=== PATIENT | female | born 1990 | race Two or more races ===

== ENCOUNTER 2024-05-13 18:03 | Inpatient (IN) | payer OTHER ==
[~2024-05-13] VITALS: Ht 175.3 cm; Wt 72.6 kg
[2024-05-13] MEDS ORDERED: CONCERTA18 MG PO (18:06)
[2024-05-13] MEDS ORDERED: CITALOPRAM HBR10 MG PO (18:06)
[2024-05-13] MEDS ORDERED: MORPHINE SULFATE 2 MG/ML SYRINGE IV ONE (18:15)
[2024-05-13] MEDS ORDERED: ADENOSINE 3 MG/ML VIAL IV ONE (18:15)
[2024-05-13] MEDS ORDERED: METOPROLOL TARTRATE 25 MG TABLET PO ONE (18:15)
[2024-05-13] MEDS ORDERED: FAMOtidine 10 MG/ML (4ML VIAL) IV ONE (18:15)
[2024-05-13] MEDS ORDERED: 0.9 % SODIUM CHLORIDE 1,000 ML IV ONE (18:15)
[2024-05-13 18:24] LABS: HEMATOCRIT 39.4 % (36.0-45.00); HEMOGLOBIN 13.5 g/dL (12.0-15.00); MEAN CELL VOLUME 89.2 fL (80.00-100.00); MEAN CORPUSCULAR HEMOGLOBIN 30.5 pg (27.00-32.0); MEAN CORPUSCULAR HGB CONC 34.2 g/dl (32.0-36.0); PLATELET COUNT 287 K/uL (150-450); RED BLOOD COUNT 4.42 M/uL (4.00-6.00)
[2024-05-13 18:39] LABS: INR 0.99; PARTIAL THROMBOPLASTIN TIME 28.2 SECONDS (22.0-34.0); PROTHROMBIN TIME 10.8 SECONDS (9.0-11.5)
[2024-05-13 18:47] LABS: ALBUMIN 3.5 gm/dL (3.4-5.0); ALKALINE PHOSPHATASE 51 U/L (50-136); ALT/SGPT 14 U/L (12-78); ANION GAP 12 (10.0-20.0); AST/SGOT 16 U/L (15-37); BILIRUBIN TOTAL 0.63 mg/dL (0.3-1.2); BLOOD UREA NITROGEN 13 mg/dL (7-18); BUN CREA RATIO 15 (7.0-25.0); CALCIUM 9.2 mg/dL (8.5-10.1); CARBON DIOXIDE 23 mEq/L (21-32); CHLORIDE 110 mmol/L (98-107); CREATININE SERUM 0.88 mg/dL (0.55-1.02); GFR 73.55; GLOBULINA 3.6 G/DL (2.4-3.5); GLUCOSE FASTING 123 mg/dL (65-100); OSMOLALITY SERUM 283 MOSM/KG (275-295); POTASSIUM 3.63 mEq/L (3.5-5.1); SODIUM 141 mmol/L (136-145); TOTAL PROTEIN 7.1 gm/dL (6.4-8.2)
[2024-05-13 18:54] LABS: HCG QUANTITATIVE < 1 mUI/mL (1-3)
[2024-05-13] MEDS ORDERED: ASPIRIN 325 MG TABLET PO ONE (19:15)
[2024-05-13] MEDS ORDERED: NITROGLYCERIN IN 5 % DEXTROSE 250 ML IV SCH (19:19)
[2024-05-13 19:42] LABS: URINE APPEARANCE Clear; URINE BILIRRUBIN Negative (NEGATIVE); URINE BLOOD Small; URINE COLOR Yellow; URINE GLUCOSE Negative (NEGATIVE); URINE KETONE 15 (NEGATIVE); URINE LEUKOCYTE Negative; URINE NITRATE Negative; URINE PROTEIN Negative (NEGATIVE); URINE UROBILINOGEN 0.2 E.U./dl
[2024-05-13 19:46] LABS: URINE BACTERIA 1286.2 uL (0.0-1933); URINE EPITHELIAL CELLS 46.3 uL (0.0-38.8); URINE WBC 9.3 uL (0.0-23.2)
[2024-05-13 19:49] LABS: URINE CAST 0.44 uL (0.0-1.40)
[2024-05-13] MEDS ORDERED: ASPIRIN 81 MG TABLET.EC PO SCH (20:43)
[2024-05-13] MEDS ORDERED: APIXABAN 2.5 MG TABLET PO SCH (20:45)
[2024-05-13 21:00] VITALS: BP 101/72; O2SAT 99
[2024-05-13] MEDS ORDERED: 0.9 % SODIUM CHLORIDE 1,000 ML IV SCH (21:00)
[2024-05-13] MEDS ORDERED: FAMOTIDINE/PF 20 MG in 0.9 % SODIUM CHLORIDE 8 ML IV PUSH SCH (21:00)
[2024-05-13 22:37] LABS: CKMB 2.5 NG/ML (0.5-3.6); TSH 2.85 uIU/mL (0.358-3.74)
[2024-05-14] VITALS (8 sets, daily range): BP systolic 103–110; BP diastolic 63–70; O2SAT 97–99
[2024-05-14] MEDS ORDERED: METOPROLOL TARTRATE 25 MG TABLET PO SCH (21:00)
[2024-05-15 00:59] VITALS: BP 101/61; O2SAT 97
[2024-05-15 06:00] VITALS: O2SAT 98
== END 2024-05-15 08:42 | disposition home or self-care (01) | DRG 310 ==
LOC: ER 18:03 → MEDI 20:51
PROVIDERS: General Practice; ADMIT Internal Medicine; ATTEND Internal Medicine
PROC: B24BZZZ Ultrasonography of Heart with Aorta (ICD-10-PCS; 2024-05-13)
PROC: 4A12X4Z Monitoring of Cardiac Electrical Activity, External Approach (ICD-10-PCS; principal; 2024-05-14)
DX: I47.19 Other supraventricular tachycardia (principal); F90.9 Attention-deficit hyperactivity disorder, unspecified type